=== PATIENT | female | born 1960 | race Caucasian/White ===

== ENCOUNTER 2017-07-13 01:38 | Emergency (ER) | payer OTHER ==
[~2017-07-13] VITALS: Ht 160 cm; Wt 78.2 kg
[~2017-07-13 01:38] MED LIST: WARF5PDS PO
[2017-07-13 02:00] VITALS: BP 136/90
--- NOTE | 2017-07-13 02:05 | NUR ---
PT AMBULATED TO ER BED 03
--- NOTE | 2017-07-13 02:19 | NUR ---
PATIENT PRESENTS TO ED WITH COUGH . PT C/O OF COUGH, NECK, AND HEAD PAIN FOR 4 DAYS . DENIES N/V/D; SKIN IS PINK/WARM/DRY; AAOX4 WITH EVEN AND STEADY GAIT; LUNGS CLEAR BL; HR EVEN AND REGULAR; PT DENIES ANY FEVER, CP, SOB, OR COUGH AT THIS TIME; PATIENT STATES PAIN OF 5/10 AT THIS TIME; VSS; PATIENT POSITIONED FOR COMFORT; HOB ELEVATED; BEDRAILS UP X2; BED DOWN. DEVYN BARKER MADE AWARE OF PT STATUS. Addendum: 07/13/17 at 0224 by MEDFL PATIENT PRESENTS TO ED WITH COUGH . PT C/O OF COUGH, NECK, AND HEAD PAIN FOR 4 DAYS . DENIES N/V/D; SKIN IS PINK/WARM/DRY; AAOX4 WITH EVEN AND STEADY GAIT; LUNGS CLEAR BL; HR EVEN AND REGULAR; PATIENT STATES PAIN OF 5/10 AT THIS TIME; VSS; PATIENT POSITIONED FOR COMFORT; HOB ELEVATED; BEDRAILS UP X2; BED DOWN. DEVYN BARKER MADE AWARE OF PT STATUS.
--- NOTE | 2017-07-13 02:25 | NUR ---
Patient being evaluated by physician at bedside.
--- NOTE | 2017-07-13 02:53 | NUR ---
FLU SWAB DONE AND WALKED OVER TO LAB
[2017-07-13 04:18] VITALS: BP 134/88
--- NOTE | 2017-07-13 04:18 | NUR ---
Patient discharged with v/s stable. Written and verbal after care instructions given and explained. Patient alert, oriented and verbalized understanding of instructions. Ambulatory with steady gait. All questions addressed prior to discharge. ID band removed. Patient advised to follow up with PMD. Rx of MOTRIN,CODEINE PHOSPHATE / PROMETHAZINE HYDRCHLORIDE given. Patient educated on indication of medication including possible reaction and side effects. Opportunity to ask questions provided and answered.
== END 2017-07-13 04:18 | disposition home or self-care (01) ==
LOC: MED 01:38
DX: A08.4 Viral intestinal infection, unspecified (principal); Z79.899 Other long term (current) drug therapy
CPT/HCPCS: 36415; 71045; 87804; 99285